=== PATIENT | male | born 1960 | race Caucasian/White ===

== ENCOUNTER 2022-07-22 07:14 | Day surgery (SDC) | payer BC ==
[~2022-07-22] VITALS: Ht 185.4 cm; Wt 109.2 kg
[~2022-07-22 07:14] MED LIST: ALEVE220 MG PO; ASPI81CH PO; ATOR20 PO; Crestor40 MG PO; LOSA50 PO; METO25 PO
--- NOTE | 2022-07-22 08:51 | NUR ---
07/22/22 0851 Pako Whitley History, Chart, Medications and Allergies reviewed before start of procedure.MONITOR INTACT WITH CONTINUOUS PULSE OXIMETRY AND INTERMITTENT BP.3-LEAD EKG REVIEWED WITH PHYSICIAN PRIOR TO START OF PROCEDURE.O2 VIA POM INTACT THROUGHOUT SEDATION/PROCEDURE.
--- NOTE | 2022-07-22 10:09 | NUR ---
Patient up to Ambulate independently. Gait steady. Discharge instructions reviewed with patient. Patient verbalizes understanding. Copy given to patient to take home. Patient States Post-Procedure ride home has been arranged. Discharged via wheelchair to private car for ride home.
== END 2022-07-22 10:10 | disposition home or self-care (01) ==
LOC: ORSCMMR 07:14 → ORD 08:45 → ORSCMMR 08:45
PROVIDERS: Surgery
PROC: 0DBN8ZX Excision of Sigmoid Colon, Via Natural or Artificial Opening Endoscopic, Diagnostic (ICD-10-PCS; principal; 2022-07-22 08:45)
PROC: 0DBH8ZX Excision of Cecum, Via Natural or Artificial Opening Endoscopic, Diagnostic (ICD-10-PCS; principal; 2022-07-22 08:45)
DX: Z12.11 Encounter for screening for malignant neoplasm of colon (principal); Z86.010 Personal history of colon polyps; D12.5 Benign neoplasm of sigmoid colon; D12.0 Benign neoplasm of cecum; I48.91 Unspecified atrial fibrillation; I25.10 Atherosclerotic heart disease of native coronary artery without angina pectoris; E78.5 Hyperlipidemia, unspecified; I10 Essential (primary) hypertension; G47.33 Obstructive sleep apnea (adult) (pediatric); G47.30 Sleep apnea, unspecified; E66.9 Obesity, unspecified; Z68.32 Body mass index [BMI] 32.0-32.9, adult; Z79.82 Long term (current) use of aspirin; Z79.899 Other long term (current) drug therapy
CPT/HCPCS: 88305; J2704; J7120

== ENCOUNTER 2023-08-25 06:14 | Day surgery (SDC) | payer BC ==
[~2023-08-25] VITALS: Ht 185.4 cm; Wt 107.8 kg
[~2023-08-25 06:14] MED LIST changes: +COQ-10100 MG PO
[2023-08-25 06:42] VITALS: BP 126/85
--- NOTE | 2023-08-25 07:18 | NUR ---
08/25/23 0718 Angel Giron History, Chart, Medications and Allergies reviewed before start of procedure.MONITOR INTACT WITH CONTINUOUS PULSE OXIMETRY, CONTINUOUS END TITAL CO2, AND INTERMITTENT BLOOD PRESSURE.3-LEAD EKG REVIEWED WITH PHYSICIAN PRIOR TO START OF PROCEDURE.O2 VIA N/C INTACT THROUGHOUT SEDATION/PROCEDURE.See Anesthesia record.
[2023-08-25 07:52] VITALS: BP 129/74
--- NOTE | 2023-08-25 07:54 | NUR ---
REPORT RECEIVED FROM JANIS BATES RN. VSS. PT ABLE TO REPOSITION SELF IN BED. PT DENIES PAIN, NAUSEA, OR OTHER DISCOMFORTS. PT SITTING UP TOLERATING PO FLUIDS.
[2023-08-25 08:08] VITALS: BP 143/94
--- NOTE | 2023-08-25 08:30 | NUR ---
Discharge instructions reviewed with patient. Patient verbalizes understanding. Copy given to patient to take home. Patient States Post-Procedure ride home has been arranged. Discharged via wheelchair to private car for ride home.
== END 2023-08-25 08:25 | disposition home or self-care (01) ==
LOC: ORSCMMR 06:14 → ORD 07:30 → ORSCMMR 08:25
PROVIDERS: Surgery
PROC: 0DBK8ZX Excision of Ascending Colon, Via Natural or Artificial Opening Endoscopic, Diagnostic (ICD-10-PCS; principal; 2023-08-25 07:30)
PROC: 0DBN8ZX Excision of Sigmoid Colon, Via Natural or Artificial Opening Endoscopic, Diagnostic (ICD-10-PCS; principal; 2023-08-25 07:30)
DX: Z86.010 Personal history of colon polyps (principal); D12.2 Benign neoplasm of ascending colon; D12.5 Benign neoplasm of sigmoid colon; G47.33 Obstructive sleep apnea (adult) (pediatric); I48.91 Unspecified atrial fibrillation; Z79.01 Long term (current) use of anticoagulants; I25.10 Atherosclerotic heart disease of native coronary artery without angina pectoris; E78.5 Hyperlipidemia, unspecified; Z79.899 Other long term (current) drug therapy; Z79.82 Long term (current) use of aspirin
CPT/HCPCS: 88305; J1100; J1885; J2405; J2704; J7120